=== PATIENT | male | born 1985 | race American Indian/Alaskan Native ===

== ENCOUNTER 2017-01-25 20:51 | Emergency (ER) | payer MEDICAID ==
[2017-01-25 20:55] VITALS: BP 141/89; PULSE 113; RESP 16; TEMP 98.1; O2SAT 96
--- NOTE | 2017-01-25 21:11 | EDPHY ---
HPI/HX/ROS/PE/MDM Narrative: CHIEF COMPLAINT: Rash HPI: The patient is a 31 y/o male complaining of a spreading and pruritic rash over the last 2 weeks. He says, "I caught a rash while I was incarcerated." He was released from retirement yesterday and is currently staying in a senior living house. He noticed the rash had spread from his lower back to his right leg today. He cannot identify an obvious cause apart from being in retirement. He denies any known allergies. No associated fever, dyspnea, vomiting, or other symptoms. He is normally healthy. REVIEW OF SYSTEMS: Aside from elements discussed in the HPI, a comprehensive 10-point review of systems was reviewed and is negative. PMH: Denies SOCIAL HISTORY: Released from retirement yesterday. Currently staying in senior living house. No recent drug or alcohol use. PHYSICAL EXAM: General:Patient is alert, in no acute distress. ENT:Eyes are normal to inspection. ENT inspection normal. Neck: Normal inspection. Full range of motion. Respiratory:No respiratory distress. Breath sounds normal bilaterally. Cardiovascular: Regular rate and rhythm. Strong peripheral pulses. Normal cap refill. Abdomen:The abdomen is nontender to palpation. There are no peritoneal signs. There are normal bowel sounds. Back: Normal to inspection. No tenderness to palpation. Skin: Normal color. Warm and dry. Sandpapery fine maculopapular rash on left flank, right buttock, right medial calf. Extremities: Normal appearance. Full range of motion. Neuro: Oriented x3. Normal motor function. Normal sensory function. ED Course: This is an otherwise healthy 31 y/o male who presents with a 2-week history of a spreading pruritic rash on his lower back and right leg. His rash is sandpapery and fine maculopapular in texture consistent with dermatitis. No vesicles. He is afebrile and his exam is otherwise normal. Plan for topical steroid cream and Benadryl for symptoms. He's been referred to a PCP for follow up as needed. Return precautions discussed. General Time Seen by Provider: 01/25/17 20:59 Initial Vital Signs: Initial Vital Signs Temperature (C) 36.7 C 01/25/17 20:53 Heart Rate 113 H 01/25/17 20:53 Respiratory Rate 16 01/25/17 20:53 Blood Pressure 141/89 H 01/25/17 20:53 O2 Sat (%) 96 01/25/17 20:53 O2 Delivery Mode Room Air Allergies/Adverse Reactions: No Known Allergies Allergy (Unverified 01/25/17 20:55) Departure - Departure Disposition: Home, Routine, Self-Care Clinical Impression: Dermatitis Condition: Good Instructions: Dermatitis (ED) Additional Instructions: 1. Take 25mg Benadryl daily as needed for itching over the next few days. This medication may make you sleepy. 2. Apply steroid cream as directed to affected areas. 3. Follow up with your primary care provider for unimproved symptoms over the next few days. You've been referred to [facility] locally if needed. 4. Return to the ED for severe pain, difficulty breathing, throat tightness, fever, dramatic worsening of rash, or other worsening of condition. Referrals: [facility],. [Clinic] - As per Instructions Report Scribed for: Rigoberto Friend Report Scribed by: Ana Kwong Date of Report: 01/25/17 Time of Report: 21:11 Physician Review and Approval Statement: Portions of this note were transcribed by an ED scribe. I personally performed the history, physical exam, and medical decision making; and confirm the accuracy of the information in the transcribed note.
--- NOTE | 2017-01-25 21:11 | EDPHY ---
HPI/HX/ROS/PE/MDM Narrative: CHIEF COMPLAINT: Rash HPI: The patient is a 31 y/o male complaining of a spreading and pruritic rash over the last 2 weeks. He says, "I caught a rash while I was incarcerated." He was released from assisted yesterday and is currently staying in a half-way house. He noticed the rash had spread from his lower back to his right leg today. He cannot identify an obvious cause apart from being in assisted. He denies any known allergies. No associated fever, dyspnea, vomiting, or other symptoms. He is normally healthy. REVIEW OF SYSTEMS: Aside from elements discussed in the HPI, a comprehensive 10-point review of systems was reviewed and is negative. PMH: Denies SOCIAL HISTORY: Released from assisted yesterday. Currently staying in half-way house. No recent drug or alcohol use. PHYSICAL EXAM: General:Patient is alert, in no acute distress. ENT:Eyes are normal to inspection. ENT inspection normal. Neck: Normal inspection. Full range of motion. Respiratory:No respiratory distress. Breath sounds normal bilaterally. Cardiovascular: Regular rate and rhythm. Strong peripheral pulses. Normal cap refill. Abdomen:The abdomen is nontender to palpation. There are no peritoneal signs. There are normal bowel sounds. Back: Normal to inspection. No tenderness to palpation. Skin: Normal color. Warm and dry. Sandpapery fine maculopapular rash on left flank, right buttock, right medial calf. Extremities: Normal appearance. Full range of motion. Neuro: Oriented x3. Normal motor function. Normal sensory function. ED Course: This is an otherwise healthy 31 y/o male who presents with a 2-week history of a spreading pruritic rash on his lower back and right leg. His rash is sandpapery and fine maculopapular in texture consistent with dermatitis. No vesicles. He is afebrile and his exam is otherwise normal. Plan for topical steroid cream and Benadryl for symptoms. He's been referred to a PCP for follow up as needed. Return precautions discussed. General Time Seen by Provider: 01/25/17 20:59 Initial Vital Signs: Initial Vital Signs Temperature (C) 36.7 C 01/25/17 20:53 Heart Rate 113 H 01/25/17 20:53 Respiratory Rate 16 01/25/17 20:53 Blood Pressure 141/89 H 01/25/17 20:53 O2 Sat (%) 96 01/25/17 20:53 O2 Delivery Mode Room Air Allergies/Adverse Reactions: No Known Allergies Allergy (Unverified 01/25/17 20:55) Departure - Departure Disposition: Home, Routine, Self-Care Clinical Impression: Dermatitis Condition: Good Instructions: Dermatitis (ED) Additional Instructions: 1. Take 25mg Benadryl daily as needed for itching over the next few days. This medication may make you sleepy. 2. Apply steroid cream as directed to affected areas. 3. Follow up with your primary care provider for unimproved symptoms over the next few days. You've been referred to [facility] locally if needed. 4. Return to the ED for severe pain, difficulty breathing, throat tightness, fever, dramatic worsening of rash, or other worsening of condition. Referrals: [facility],. [Clinic] - As per Instructions Report Scribed for: Rigoberto Friend Report Scribed by: Ana Kwong Date of Report: 01/25/17 Time of Report: 21:11 Physician Review and Approval Statement: Portions of this note were transcribed by an ED scribe. I personally performed the history, physical exam, and medical decision making; and confirm the accuracy of the information in the transcribed note.
--- NOTE | 2017-01-25 21:11 | EDPHY ---
HPI/HX/ROS/PE/MDM Narrative: CHIEF COMPLAINT: Rash HPI: The patient is a 31 y/o male complaining of a spreading and pruritic rash over the last 2 weeks. He says, "I caught a rash while I was incarcerated." He was released from correction yesterday and is currently staying in a shelter house. He noticed the rash had spread from his lower back to his right leg today. He cannot identify an obvious cause apart from being in correction. He denies any known allergies. No associated fever, dyspnea, vomiting, or other symptoms. He is normally healthy. REVIEW OF SYSTEMS: Aside from elements discussed in the HPI, a comprehensive 10-point review of systems was reviewed and is negative. PMH: Denies SOCIAL HISTORY: Released from correction yesterday. Currently staying in shelter house. No recent drug or alcohol use. PHYSICAL EXAM: General:Patient is alert, in no acute distress. ENT:Eyes are normal to inspection. ENT inspection normal. Neck: Normal inspection. Full range of motion. Respiratory:No respiratory distress. Breath sounds normal bilaterally. Cardiovascular: Regular rate and rhythm. Strong peripheral pulses. Normal cap refill. Abdomen:The abdomen is nontender to palpation. There are no peritoneal signs. There are normal bowel sounds. Back: Normal to inspection. No tenderness to palpation. Skin: Normal color. Warm and dry. Sandpapery fine maculopapular rash on left flank, right buttock, right medial calf. Extremities: Normal appearance. Full range of motion. Neuro: Oriented x3. Normal motor function. Normal sensory function. ED Course: This is an otherwise healthy 31 y/o male who presents with a 2-week history of a spreading pruritic rash on his lower back and right leg. His rash is sandpapery and fine maculopapular in texture consistent with dermatitis. No vesicles. He is afebrile and his exam is otherwise normal. Plan for topical steroid cream and Benadryl for symptoms. He's been referred to a PCP for follow up as needed. Return precautions discussed. General Time Seen by Provider: 01/25/17 20:59 Initial Vital Signs: Initial Vital Signs Temperature (C) 36.7 C 01/25/17 20:53 Heart Rate 113 H 01/25/17 20:53 Respiratory Rate 16 01/25/17 20:53 Blood Pressure 141/89 H 01/25/17 20:53 O2 Sat (%) 96 01/25/17 20:53 O2 Delivery Mode Room Air Allergies/Adverse Reactions: No Known Allergies Allergy (Unverified 01/25/17 20:55) Departure - Departure Disposition: Home, Routine, Self-Care Clinical Impression: Dermatitis Condition: Good Instructions: Dermatitis (ED) Additional Instructions: 1. Take 25mg Benadryl daily as needed for itching over the next few days. This medication may make you sleepy. 2. Apply steroid cream as directed to affected areas. 3. Follow up with your primary care provider for unimproved symptoms over the next few days. You've been referred to [facility] locally if needed. 4. Return to the ED for severe pain, difficulty breathing, throat tightness, fever, dramatic worsening of rash, or other worsening of condition. Referrals: [facility],. [Clinic] - As per Instructions Report Scribed for: Rigoberto Friend Report Scribed by: Ana Kwong Date of Report: 01/25/17 Time of Report: 21:11 Physician Review and Approval Statement: Portions of this note were transcribed by an ED scribe. I personally performed the history, physical exam, and medical decision making; and confirm the accuracy of the information in the transcribed note.
[2017-01-25] MEDS ORDERED: HYDROCORTISONE 1% CREAM TP ONE (21:21)
[2017-01-26] MEDS ORDERED: HYDROCORTISONE 1% CREAM TP ONE (21:23)
== END 2017-01-25 21:30 | disposition home or self-care (01) ==
DX: L30.9 Dermatitis, unspecified (principal)

== ENCOUNTER 2017-03-20 09:23 | Emergency (ER) | payer MEDICAID ==
[2017-03-20 09:36] VITALS: BP 130/94; PULSE 96; RESP 18; TEMP 97.9; O2SAT 96
[2017-03-20] MEDS ORDERED: traMADol 50 MG TAB PO ONE (09:52)
--- NOTE | 2017-03-20 09:53 | EDPHY ---
H & P Stated Complaint: Dental pain post extraction 03/16;out of hydrocodone Source: Patient Exam Limitations: No limitations - Personal History Current Tetanus Diphtheria and Acellular Pertussis (TDAP): Yes - Medical/Surgical History Hx Asthma: No Hx Chronic Respiratory Disease: No Hx Diabetes: No Hx Cardiac Disease: No Hx Renal Disease: No Hx Cirrhosis: No Hx Alcoholism: No Hx HIV/AIDS: No Hx Splenectomy or Spleen Trauma: No Other PMH: ADHD bipolar - Social History Smoking Status: Current every day smoker Time Seen by Provider: 03/20/17 09:53 HPI/ROS: HPI: This is a 31-year-old male presents with Chief Complaint: Right upper back tooth pain Location: Right upper molar Quality: Pain Duration: Since this morning Signs and Symptoms: No radiation, no difficulty swallowing, + sensitivity to hot and cold foods, no jaw swelling, no difficulty talking Timing: Sudden onset Severity: 11/04 Context: Patient presents via EMS for sudden onset of severe, constant right upper molar tooth pain. He reports that he had at tooth extraction approximately 5 days ago. He has been taking penicillin and reports compliance. He was given [place] by his oral surgeon but he ran out yesterday evening. He was taking 2 pills every 4 hr. He has been an able to eat or drink this morning due to the pain. Nothing makes better or worse. He did not try taking Tylenol or ibuprofen. Denies fever/radiation/trismus/difficulty swallowing/difficulty talking. Modifying Factors: None Comment: ROS: see HPI Constitutional: No fever, no chills, no weight loss Eyes: No blurred vision Respiratory: No shortness of breath, no cough Cardiovascular: No chest pain Gastrointestinal: No nausea, no vomiting, no diarrhea Genitourinary: No dysuria Extremities: No myalgias Neurologic: No weakness, no numbness Skin: No rashes Hematologic: No bruising, no bleeding MEDICAL/SURGICAL/SOCIAL HISTORY: Medical history: Attention deficit hyperactivity disorder, bipolar Surgical history: Oral surgery Social history: Employed. CONSTITUTIONAL: Adult male holding right side of jaw, ice pack applied, awake and alert, moderate distress HEENT: Atraumatic and normocephalic, PERRL, EOMI. Tympanic membranes clear. Oropharynx clear, tooth #1 shows no gingival erythema/swelling/exudate. No malocclusion. no exudate and moist pink mucosa. Airway patent. No lymphadenopathy. No meningismus. Cardiovascular: Normal S1/S2, regular rate, regular rhythm, without murmur rub or gallop. PULMONARY/CHEST: Symmetrical and nontender. Clear to auscultation bilaterally. Good air movement. No accessory muscle usage. ABDOMEN: Soft, nondistended, nontender, no rebound, no guarding, no peritoneal signs, no masses or organomegaly. No CVAT. EXTREMITIES: 2/2 pulses, strength 5/5, no deformities, no clubbing, no cyanosis or edema. NEUROLOGICAL: no focal neuro deficits. GCS 15. SKIN: Warm and dry, no erythema. no rash. Good capillary refill. (Jocelyn Kelley) Constitutional: Initial Vital Signs Temperature (C) 36.6 C 03/20/17 09:34 Heart Rate 96 03/20/17 09:34 Respiratory Rate 18 03/20/17 09:34 Blood Pressure 130/94 H 03/20/17 09:34 O2 Sat (%) 96 03/20/17 09:34 O2 Delivery Mode Room Air Allergies/Adverse Reactions: No Known Allergies Allergy (Verified 03/20/17 09:33) Home Medications: Medication Instructions Recorded Penicillin V Potassium [Penicillin 500 mg PO 03/20/17 VK] traMADol [Ultram 50 mg (*)] 50 mg PO Q6 PRN #10 tab 03/20/17 Medical Decision Making Procedures: Procedure: Dental block The patient's #1 molar located on the right upper back tooth. I obtained verbal consent from the patient to perform dental block who was informed about the possibility of bleeding and pain. 4 mL of the bupivacaine was injected into the right upper buccal submucosal space with almost immediate relief of pain. Patient tolerated procedure well. No complications were identified. The procedure was performed by myself. (Jocelyn Kelley) ED Course/Re-evaluation: Probably given dental block and tramadol No signs of dry socket/airway compromise/periapical abscess/facial cellulitis Almost immediate relief with dental block. Advised to follow up with dentist as ER will not refill pain medications for postoperative procedure. This patient was seen under the supervision of my secondary supervising physician. I evaluated care for this patient independently. Discussed this patient with Dr. Edmonds who did not see the patient. (Jocelyn Kelley) The patient was evaluated and managed by the physician engineering inspection assistant. I have reviewed this chart and I agree with the findings and plan of care as documented , as indicated by my signature. I am the secondary supervising physician. ( Gillian Edmonds) Differential Diagnosis: Differential diagnosis includes but is not limited to opiate withdrawal, dry socket, nerve pain, odontalgia. (Jocelyn Kelley) - Data Points Medications Given: Discontinued Medications Tramadol HCl (Ultram) 100 mg PO EDNOW ONE Stop: 03/20/17 09:53 Last Admin: 03/20/17 09:56 Dose: 100 mg Departure - Departure Disposition: Home, Routine, Self-Care Clinical Impression: Odontalgia, Has run out of medications Condition: Good Instructions: Tramadol (By mouth), Toothache (ED) Additional Instructions: Please call your dentist on Tuesday for refill of pain medications and follow up. Take Tylenol 650 mg every 4 hr or ibuprofen 600-800 mg with food every 8 hr for pain. If pain not relieved with above medications, you may use Ultram every 6 hr as needed for severe/breakthrough pain. Referrals: Unknown,Unknown [Unknown] - 1 day, if not improved Prescriptions: traMADol [Ultram 50 mg (*)] 50 mg PO Q6 PRN #10 tab PRN Reason: Pain, Severe
== END 2017-03-20 10:05 | disposition home or self-care (01) ==
PROC: 3E0X3BZ Introduction of Anesthetic Agent into Cranial Nerves, Percutaneous Approach (ICD-10-PCS; principal; 2017-03-20)
DX: K08.89 Other specified disorders of teeth and supporting structures (principal); F17.200 Nicotine dependence, unspecified, uncomplicated; Z76.0 Encounter for issue of repeat prescription

== ENCOUNTER 2017-06-09 15:30 | Emergency (ER) | payer MEDICAID ==
--- NOTE | 2017-06-09 15:45 | EDPHY ---
H & P Stated Complaint: right arm laceration r/t fall Time Seen by Provider: 06/09/17 15:44 - Personal History Current Tetanus Diphtheria and Acellular Pertussis (TDAP): Yes Tetanus Vaccine Date: 2015 - Medical/Surgical History Hx Asthma: No Hx Chronic Respiratory Disease: No Hx Diabetes: No Hx Cardiac Disease: No Hx Renal Disease: No Hx Cirrhosis: No Hx Alcoholism: No Hx HIV/AIDS: No Hx Splenectomy or Spleen Trauma: No Other PMH: ADHD bipolar - Social History Smoking Status: Current every day smoker Constitutional: Initial Vital Signs Temperature (C) 36.4 C 06/09/17 15:36 Heart Rate 83 06/09/17 15:36 Respiratory Rate 18 06/09/17 15:36 Blood Pressure 140/73 H 06/09/17 15:36 O2 Sat (%) 94 06/09/17 15:36 O2 Delivery Mode Room Air Allergies/Adverse Reactions: No Known Allergies Allergy (Verified 06/09/17 15:34) Home Medications: Medication Instructions Recorded Penicillin V Potassium [Penicillin 500 mg PO 03/20/17 VK] traMADol [Ultram 50 mg (*)] 50 mg PO Q6 PRN #10 tab 03/20/17 Hydrocodone/APAP 5/325 [[place] 1 - 2 each PO Q4-6PRN PRN #20 tab 06/09/17 5/325] Neurontin 06/09/17 Zyprexa 06/09/17 Medical Decision Making ED Course/Re-evaluation: CHIEF COMPLAINT: Right arm burn HISTORY OF PRESENT ILLNESS: The patient is a 32 y/o male presenting with a burn to the right lower arm. He was walking in his kitchen when he slipped on dog food causing his right arm to hit the stove. He has associated pain at the site of the burn. He denies any other associated symptoms. REVIEW OF SYSTEMS: A 10 point review of systems was performed and is negative with the exception of the elements mentioned in the history of present illness. PHYSICAL EXAM: HR, BP, O2 Sat, RR. Temp noted General Appearance: Alert, well hydrated, appropriate, and non-toxic appearing. Head: Atraumatic without scalp tenderness or obvious injury Eyes: Pupils equal, round, reactive to light and accommodation, EOMI, no trauma , no injection. Respiratory: Not in respiratory distress. Cardiovascular: Regular rate and rhythm, no murmurs, rubs, or gallops. Musculoskeletal: Normal active ROM of all extremities, atraumatic. Neurological: Alert, appropriate, and interactive. Skin: 8 cm superficial 2nd degree linear burn to the dorsal aspect of the right arm. Not circumferential. Blisters have popped. Past medical history: Denies Past surgical history: Denies Family history: Non-contributory Social history: Lives in [place], , medicaid patient DIFFERENTIAL DIAGNOSIS: The differential diagnosis for this patient's condition included but was not limited to 1st degree burn, 2nd degree burn, 3rd degree burn, and laceration. MEDICAL DECISION MAKING: The patient presents with a burn to the right forearm. On exam the burn is non-circumferential, on the dorsal aspect, and 8 cm long. It appears to be 2nd degree with the blisters already popped. The patient denies any other complaints. Dressing and bacitracin will be applied in ED and he will be sent home with instructions to change dressings daily. I have also prescribed him hydrocodone for the pain. He agrees to this course of action. - Data Points Medications Given: Discontinued Medications Ibuprofen (Motrin) 600 mg PO EDNOW ONE Stop: 06/09/17 15:53 Last Admin: 06/09/17 15:54 Dose: 600 mg Departure - Departure Disposition: Home, Routine, Self-Care Clinical Impression: Burn of right arm Qualifiers: Encounter type: initial encounter Upper extremity location: forearm Burn degree : partial thickness (2nd degree) Qualified Code(s): T22.211A - Burn of second degree of right forearm, initial encounter Condition: Good Instructions: Second Degree Burn (ED) Additional Instructions: 1. Change your dressing daily using bacitracin. 2. Follow up with your primary care provider for continued symptoms. 3. Return to the emergency department for any worsening of condition. Referrals: Jessica Jacob MD [Medical Doctor] - As per Instructions Prescriptions: Hydrocodone/APAP 5/325 [[place] 5/325] 1 - 2 each PO Q4-6PRN PRN #20 tab PRN Reason: Pain, Moderate Report Scribed for: Robert Johnson Report Scribed by: Julia Bermeo Date of Report: 06/09/17 Time of Report: 16:07
[2017-06-09] MEDS ORDERED: IBUPROFEN 600 MG TAB PO ONE (15:52)
[2017-06-09 16:24] VITALS: BP 121/79; PULSE 73; RESP 16; TEMP 98.6; O2SAT 95
== END 2017-06-09 16:24 | disposition home or self-care (01) ==
PROC: 2W2CX4Z Dressing of Right Lower Arm using Bandage (ICD-10-PCS; principal; 2017-06-09)
DX: T22.211A Burn of second degree of right forearm, initial encounter (principal); F17.200 Nicotine dependence, unspecified, uncomplicated; T31.0 Burns involving less than 10% of body surface; X15.0XXA Contact with hot stove (kitchen), initial encounter; Y92.000 Kitchen of unspecified non-institutional (private) residence as the place of occurrence of the external cause; Y99.8 Other external cause status; Y93.01 Activity, walking, marching and hiking

== ENCOUNTER 2018-01-12 10:21 | Inpatient (IN) | payer MEDICAID, OTHER ==
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
[2018-01-12 11:31] LABS: PLATELET COUNT 329 10^3/uL (150-400)
[2018-01-12] MEDS ORDERED: LORazepam 1 MG TAB PO ONE (14:13)
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
--- NOTE | 2018-01-12 21:13 | ASMTTCLDSP ---
TLC Discharge Disposition Disposition: Answers: Admit Discharge Concerns/Recommendations: Notes: In consultation with [facility] ED physician, Denise Corral MD and on-call psychiatrist, Pina Arteaga MD, both concurred that pt appears to meet 27-65 criteria requiring psychiatric hospitalization as pt appears to be at risk of harm to self due to a mental illness condition. Was patient given the Answers: Yes Inpatient Behavioral Health Prohibited Belongings List while in the ED? Date Signed: 01/12/2018 08:45 PM Electronically Signed By:Sigrid Mason
--- NOTE | 2018-01-12 21:13 | ASMTLCPROG ---
Notes Note: Notes: Correction on TLC Eval: Accepting psychiatrist was Dr. Pina Arteaga, Not Dr. Marquis Moreno. Date Signed: 01/12/2018 08:46 PM Electronically Signed By:Sgirid Mason
[2018-01-12] MEDS ORDERED: MAG HYDROX/AL HYDROX/SIMETH 30 ML UDCUP PO PRN (22:31)
[2018-01-12] MEDS ORDERED: ACETAMINOPHEN 325 MG TAB PO PRN (22:31)
[2018-01-12] MEDS ORDERED: MAGNESIUM HYDROXIDE 30 ML UDCUP PO PRN (22:31)
[2018-01-12] MEDS ORDERED: NICOTINE POLACRILEX 2 MG GUM B PRN (22:31)
--- NOTE | 2018-01-12 23:07 | CPEKG ---
Test Reason : OPEN Blood Pressure : / mmHG Vent. Rate : 063 BPM Atrial Rate : 063 BPM P-R Int : 137 ms QRS Dur : 100 ms QT Int : 422 ms P-R-T Axes : 054 083 061 degrees QTc Int : 433 ms Sinus rhythm Confirmed by Denise Corral ([id number]) on 01/12/2018 11:06:39 PM Referred By: Confirmed By:Denise Corral
[2018-01-12] MEDS: LORazepam 0.5 MG TAB PO PRN (23:43)
[2018-01-13] MEDS ORDERED: OLANZapine 5 MG TAB PO PRN
[2018-01-13] MEDS ORDERED: PNEUMOCOCCAL 0.5ML VACCINE VIAL IM ONE (11:26)
--- NOTE | 2018-01-13 11:44 | ASMTBHMTP ---
Master Treatment Plan Master Treatment Plan Answers: Depressed Mood with for: Suicidal Ideation Date: 01/13/2018 Diagnosis on Admission: Post Traumatic Stress Disorder 309.81 (F43.10) Expected length of stay: 3-5 Reason for admission: Notes: The patient stated, "I've been having crazy behavior, I'm thinking about suicide a lot, thinking about running away, I don't have a sense of being safe, and I don't know where I belong." Patient's stated presenting problems: Notes: The patient reported that he often makes plans and creates a schedule but if things don't go that way he feels overwhelmed stating, "I'm in shock a little bit." He reported that he "thinks about it too much and doesn't want to do it anymore." The patient stated that he feels there is an "ugly sense in me something is wrong, something ain't right." Patient's goals for treatment: Notes: The patient stated, "Get rid of my internal conflicts that I have about every little thing." Patient's strengths: Notes: The patient stated, "bike riding, engineering, and helping." Identify supports outside of hospital: Notes: The patient stated, "My ." His is Denis Navas [[phone]]. Discharge criteria: Notes: Suicidal ideation will resolve and patient will have a plan to safely manage recurrent suicidal ideation. Initial disposition plan/considerations: Notes: The patient reported that he plans to return home and continue services with [facility] outpatient. Master Treatment Plan Required Signatures Psychiatrist signature: Answers: YAW Taylor: RN on-shift signature: Answers: RN: Patient signature: Answers: Patient: Date Signed: 01/13/2018 11:43 AM Electronically Signed By:Ginny Lyn
[2018-01-13] MEDS ORDERED: guaiFENesin 200 MG TAB PO PRN (14:33)
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
[2018-01-13] MEDS: GABAPENTIN 400 MG CAP PO SCH ×2 (15:37→21:20)
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
[2018-01-13] MEDS: OLANZapine DISINTEGR 10 MG TAB PO SCH (21:20)
[2018-01-14] MEDS: GABAPENTIN 400 MG CAP PO SCH ×3 (09:18→21:24)
[2018-01-14] MEDS: LORazepam 0.5 MG TAB PO PRN (14:26)
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
[2018-01-14] MEDS: OLANZapine DISINTEGR 10 MG TAB PO SCH (21:25)
[2018-01-15] MEDS: GABAPENTIN 400 MG CAP PO SCH ×3 (08:15→20:37)
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
[2018-01-15] MEDS: OLANZapine DISINTEGR 10 MG TAB PO SCH (20:36)
[2018-01-16 06:48] VITALS: BP 123/60
[2018-01-16] MEDS: GABAPENTIN 400 MG CAP PO SCH (08:32)
--- NOTE | 2018-01-16 09:39 | BDS ---
REASON FOR ADMISSION: From the ED note dated 01/12/2018, the patient has a history of schizoaffective disorder, bipolar type. Has been off his medications for 6 months. On the waiting list to see mental health provider. The patient presented to the ER voluntarily with his complaining of increasing suicidal ideation with plan to hang himself. The patient reported increased auditory hallucinations. The patient was admitted involuntarily on an M1 hold due to being a danger to himself. The patient was admitted for safety crisis stabilization and medication management. ADMITTING DIAGNOSES: Schizoaffective disorder, bipolar type; posttraumatic stress disorder, alcohol use disorder, severe; cannabis use disorder, severe. ADMISSION PHYSICAL EXAM: The patient was seen for an Internal Medicine consultation for medical clearance for inpatient psychiatric hospitalization on 01/13/2018. The patient was seen by Dr. Tillman. Dr. Tillman reported he saw no medical contraindications to the patient's continued stay in the inpatient behavioral health unit or to any psychiatric medications or procedures. For further details, please refer to Internal Medicine consultation note dated 01/13. ADMISSION LABS: CBC was entirely within normal limits with no leukocytosis. Serum chemistry revealed normal renal function and electrolytes and liver function. The patient had lipid panel with cholesterol of 149, LDL of 78, and HDL of 43. Hemoglobin A1c was normal at 5.5. Toxicology screen in the serum was negative for salicylates, acetaminophen or ethyl alcohol and toxicology screen in the urine was negative for any substances of abuse. MAJOR PROCEDURES OR TESTS: None. HOSPITAL COURSE: The most prominent symptoms and behaviors while the patient was here were the patient's complaints of auditory hallucinations. The patient reported severe depression, hopelessness, and suicidal ideation. Treatment modalities utilized were milieu and group therapy. Zyprexa, Zydis 10 mg p.o. at bedtime was started to target psychosis symptoms, was tolerated with no report of side effects and with good response. Gabapentin 400 mg TID was started to target anxiety symptoms, was tolerated with no report of side effects and with good response. The patient has improved considerably with no signs of psychiatric symptoms and no psychiatric symptoms expressed at time of discharge. The patient reports he has improved since admission. States to be in stable condition. Feels safe to discharge and he contracts for safety. Patient's response to treatment was good. There were no adverse or unexpected results of treatment. The patient was safe throughout his stay, active in treatment, engaged in groups, and was appropriate with staff and other patients. The patient met with the treatment team prior to discharge to assess readiness to discharge and reviewed discharge plan. The treatment team consensus is the patient is in stable condition, has a safe discharge plan and is ready to discharge today. Patient requests medication for alcohol abuse treatment during family meeting. After reviewing options, risks, and benefits patient agrees to Antabuse 250 mg po QD. CONDITION AT DISCHARGE: Patient is in stable condition and is no longer a danger to self or others, and is not gravely disabled due to mental illness. Patient is no longer in need of inpatient level of care, and can be safely and effectively treated within the community. The patients level of risk at time of discharge is low. MSE: The patient is casually dressed and with good hygiene , and looks stated age. Patient is sitting, posture is upright, and position is relaxed. Patient appears awake, alert, and responds appropriately and reasonably during interview. Patient is engaged, relates well to interviewer, and emotional facial expression is appropriate to situation and changes appropriately with topic. Patient is cooperative, makes comfortable eye contact , and movements are voluntary, deliberate, coordinated, and smooth and even with no inappropriate movements. Patient makes laryngeal sounds effortlessly and shares conversation appropriately; pace of conversation is appropriate, and stream of talking is fluent; articulation is clear and understandable; word choice is effortless and appropriate for education level; completes sentences, occasionally pausing to think; rate and volume are appropriate for interview and setting. Patient reports mood as euthymic. Patients affect is stable with full variable range, congruent with mood, and appropriate to speech and circumstances. Patient has linear and logical thinking, with no loose associations, tangential thought, thought blocking, concrete thinking, or any other signs of formal thought disorder. Patient denies suicidal and homicidal ideation, and denies hallucinations and delusions. Patient appears to be a reliable historian with sound judgement and good insight into current condition. Patient has no apparent dysfunction in recent or remote memory noted , and no evidence of gross cognitive dysfunction noted at any point during the interview. DISCHARGE DIAGNOSES: Schizoaffective disorder, bipolar type; posttraumatic stress disorder, alcohol use disorder, severe; cannabis use disorder, severe. CURRENT MEDICATIONS: After reviewing options, risks and benefits the patient agrees to continue Zyprexa 10 mg p.o. at bedtime, and gabapentin 400 mg p.o. three times daily. Patient requests Antabuse 250 mg po QD for alcohol abuse treatment. The patient requests prescriptions for these medications at time of discharge. Prescriptions for 30 days are provided. The prescriptions are reviewed with the patient at time of discharge to ensure accuracy and patient understanding. DISPOSITION: The patient left hospital independently and voluntarily with his and plans to return home with his . The patient met with this [employer] and his at the patient's request for a family meeting prior to discharge. FOLLOWUP: coordinator of genetic services reports the appropriate outpatient follow-up services have been established and outpatient appointments have been scheduled. The patient received written instructions with times and dates of outpatient follow-up appointments. The following follow-up recommendations were provided to the patient at discharge: Continue psychotropic medications as prescribed and attend appointments as scheduled. Report any side effects to a psychiatric outpatient provider, a primary care provider, or other health healthcare technician. Address any questions or problems concerning the psychotropic medications with a psychiatric outpatient provider, a primary care provider, or other health healthcare technician. Contact [facility] or [facility], or go to the nearest emergency room, if you are ever a danger to yourself/others, or unable to care for yourself. As soon as possible, establish a routine medication management treatment with a psychiatric provider, establish routine therapy appointments, and follow-up with a primary care provider. SUBSTANCE ABUSE BRIEF INTERVENTION: Brief intervention regarding the risks of alcohol and cannabis abuse is provided to patient with goal to reduce the risk of harm that could result from the continued use of alcohol and cannabis, with the general aim to investigate the problem, raise awareness of problem, develop a solution with the patient, recommend a specific change or activity, and motivate the patient toward change. Assess substance abuse behavior and give supportive advice about harm reduction, recommend a reduction in hazardous/at- risk consumption patterns, and facilitate referrals for additional specialized treatment with customer care agent. Intermediate goal is for the patient to quit use of alcohol and cut down on cannabis use. Treatment includes Antabuse and outpatient substance abuse treatment at [facility]. Intervention focus on intermediate goals to allow for more immediate success in the treatment process to keep the patient motivated. Review following with patient: Cannabis use risks: Short-term use: impaired short-term memory, impaired motor coordination, altered judgement, in high doses paranoia and psychosis. Long-term use addiction, diminished life satisfaction and achievement, symptoms of chronic bronchitis, and increased risk of chronic psychosis disorders if predisposition to such disorders. In withdrawal anger, aggression irritability, anxiety and nervousness, decreased appetite or weight loss, restlessness, and sleep difficulties with strange dreams. Alcohol/Binge Drinking risks: short-term: injuries, violence, alcohol poisoning, risky sexual behaviors. Long-term: high blood pressure, stroke, liver disease, digestive problems, cancer, learning and memory problems, depression and anxiety, social problems, and alcohol dependence. OUTPATIENT SUBSTANCE ABUSE TREATMENT: Patient referred to outpatient provider and treatment for continued treatment related to substance abuse. LEGAL COURSE: The patient was admitted on an M1 for involuntary inpatient psychiatric hospitalization. The patient discharged today independently and voluntarily. ATTITUDE AT TIME OF DISCHARGE: The patients attitude was positive at time of discharge, and patient reports looking forward to discharging today. The patient reports he feels safe to discharge, is no longer a danger to himself or others, is in stable condition, and contracts for safety. Patient states he will continue medications as prescribed, and establish medication management treatment with an outpatient provider after discharge. Patient reports he understands the information that has been provided to him, and he understands, accepts, and agrees to psychotropic medications. Patient describes internal protective factors as the coping skills he has learned while hospitalized here, and he plans to continue to practice these coping skills after discharge. Patient reports external protective factors as . FAMILY MEETING: This [employer] and customer care agent met with patient and patients at time of discharge at patients request to review discharge plan and assess readiness to discharge. Patients reports patient is safe to discharge and has a safe discharge plan. Patients reports patients main issue is alcohol abuse, and patient agrees. Patient reports his alcohol use causes exacerbation of psychosis symptoms and increased anxiety, and states his alcohol use is ruining his relationship with his . Patient requests medication for alcohol abuse. After reviewing options, risks, and benefits with patient and patients patient requests prescription of Antabuse 250 mg po QD. Patient states he is ready to completely abstain from drinking alcohol and plans to follow-up today with [facility] for setting up services. Patient reports he understands the risks associated with taking Antabuse including drinking alcohol and states he will not drink alcohol, and states he needs this type of treatment in order to abstinence from alcohol. His agrees with this plan. LABS AND RADIOLOGY STUDIES: There were no pending labs or studies at time of discharge. ADVANCED DIRECTIVES: There were no advance directives on file, and the patient was full code during hospitalization. The following psychotropic medication treatment informed consent and recommendations were provided to the patient at time of discharge. Patient reports he understands, accepts, and agrees to the information that has been provided. PSYCHOTROPIC MEDICATION TREATMENT INFORMED CONSENT and RECOMMENDATIONS: Review nature of condition, diagnosis, and prognosis. Review nature and purpose of psychotropic medication treatment. Review type of psychotropic medications being prescribed. Review risk and benefits of psychotropic medication treatment. Review probable length of time will need to take medications. Review risk and benefits of not undergoing psychotropic medication treatment. Review alternative treatments to psychotropic medications. Review psychotropic medications contraindications, side effects, and importance of reporting any side effects to a psychiatric provider, primary care provider, or other health healthcare technician. Review importance of asking a psychiatric provider or primary care provider any questions or problems concerning the psychotropic medications. Review safety plan and the importance to contact [facility] or [facility] , or go to the nearest emergency room, if ever a danger to yourself/others, or unable to care for yourself. Recommend upon discharge to establish routine medication management treatment with a psychiatric provider, establish routine therapy appointments, and follow-up with a primary care provider. Verify patient understands, accepts, and agrees to the information that has been provided. SUICIDE ASSESSMENT FIVE-STEP EVALUATION AND TRIAGE (1) RISK FACTORS: (a) Suicidal behavior: reports vague history of multiple attempts (b) Current/past psychiatric disorders: Schizoaffective disorder, bipolar type; alcohol use disorder, severe; cannabis use disorder, severe. (c) Tafoya symptoms: none expressed or exhibited at time of discharge (d) Family history: mom--attempted; dad--attempted (e) Precipitants/Stressors/Interpersonal: none (f) Change in treatment: discharge from psychiatric hospital (g) Access to firearms: none (2) PROTECTIVE FACTORS: (a) Internal: coping skills learned while hospitalized (b) External: family and future (3) SUICIDAL INQUIRY: (a) Ideation: none (b) Plan: none (c) Behaviors: none; patient was safe throughout stay with no suicidal or parasuicidal behaviors (d) Intent: none (4) RISK LEVEL: Low: modifiable risk factors, strong protective factors; no suicidal or self-injurious ideation. Intervention: treatment plan to reduce symptoms including medications and therapy, provided emergency/crisis numbers, established follow-up plan, and plan for alcohol abuse treatment including medications and therapy. /[id number]/MODL MTDD
== END 2018-01-16 11:43 | disposition home or self-care (01) | DRG 885 ==
LOC: BBEH 21:15 → FOB 21:15
PROVIDERS: ADMIT Psychiatry & Neurology Behavioral Neurology & Neuropsychiatry; ATTEND Registered Nurse
DX: F25.0 Schizoaffective disorder, bipolar type (principal); R45.851 Suicidal ideations; F43.10 Post-traumatic stress disorder, unspecified; F10.10 Alcohol abuse, uncomplicated; F12.20 Cannabis dependence, uncomplicated; S61.511A Laceration without foreign body of right wrist, initial encounter; X78.9XXA Intentional self-harm by unspecified sharp object, initial encounter; R05 Cough; Z23 Encounter for immunization; Z91.5 Personal history of self-harm; Z81.8 Family history of other mental and behavioral disorders; Z62.810 Personal history of physical and sexual abuse in childhood
CPT/HCPCS: 80305; G0008; G0009; G0480

== ENCOUNTER 2018-03-18 15:06 | Emergency (ER) | payer MEDICAID ==
--- NOTE | 2018-03-18 15:22 | EDPHY ---
H & P Time Seen by Provider: 03/18/18 15:20 HPI/ROS: HPI CHIEF COMPLAINT: Medical clearance for [facility]. HISTORY OF PRESENT ILLNESS: Patient 32-year-old male, history of schizoaffective disorder, bipolar subtype, PTSD, history of marijuana use and alcohol use, presents emergency room by EMS for attempted hanging. The patient was contacted by police and EMS at his girlfriend's house. Where he was causing a disturbance, became upset. He placed an electrical wire around his neck and He states he hung briefly by this until the chair broke, brief hanging <30 seconds. He then attempted to hang again and was briefly hanging for less than a minute. He does have ligature janina on his anterior neck. Small, thing janina, no neck swelling. He denies any trouble swallowing. Denies trouble breathing. No headache. Complains of some mild anterior neck pain. No posterior neck pain. The patient here is suicidal, and medical clearance for [facility]. Past Medical History: Bipolar disorder, PTSD, marijuana use, alcohol use. Past Surgical History: Denies recent Social History: Denies current use. Family History: Noncontributory ROS REVIEW OF SYSTEMS: 10 Systems were reviewed and negative with the exception of the elements mentioned in the history of present illness. Exam Constitutional triage nursing summary reviewed, vital signs reviewed, awake/ alert. Eyes normal conjunctivae and sclera, EOMI, PERRLA. HENT neck: In a cervical collar placed by EMS, ligature janina very small thin ligature janina across the anterior neck. No stridor. No tenderness no crepitus , no bruit appreciated. No midline cervical spine pain posteriorly. normal inspection, atraumatic, moist mucus membranes, no epistaxis, neck supple/ no meningismus, no raccoon eyes. Respiratory clear to auscultation bilaterally, normal breath sounds, no respiratory distress, no wheezing. Cardiovascular rate normal, regular rhythm, no murmur, no edema, distal pulses normal. Gastrointestinal soft, non-tender, no rebound, no guarding, normal bowel sounds, no distension, no pulsatile mass. Genitourinary no CVA tenderness. Musculoskeletal no midline vertebral tenderness, full range of motion, no calf swelling, no tenderness of extremities, no meningismus, good pulses, neurovascularly intact. Skin pink, warm, & dry, no rash, skin atraumatic. Neurologic awake, alert and oriented x 3, AAOx3, moves all 4 extremities equally, motor intact, sensory intact, CN II-XII intact, normal cerebellar, normal vision, normal speech. Psychiatric normal mood/affect. Heme/Lymph/Immune no lymphadenopathy. Differential Diagnosis: Plan for this patient, will obtain blood work for CT angiogram neck, CT cervical spine without contrast for trauma. CT head without contrast for trauma Medical Decision Making: Plan for patient for medical clearance for [facility], is Ct neck, Ct angio neck, ct head. If these are normal, he can be cleared to go to [facility], where he will be under suicide watch as well. Re-evaluation: CT scan head without contrast negative for acute traumatic injury called to me by Dr. Sevilla CT angiogram of the neck shows no evidence of acute dissection or injury called to me by Dr. Sevilla CT cervical spine without contrast negative for acute traumatic injury called to me by Dr. Sevilla. Patient is here in police custody, here for medical clearance for [facility]. 1804 re-evaluation the patient has no neck pain or neck swelling. He is able to talk fine, swallow fluids fine no stridor on exam no neck swelling. CT scans reviewed. Normal Patient he under-arrest, and brought here for clearance for [facility]. Plan for discharge to [facility] with please. He is medically cleared for [facility]. Needs to be placed on suicide watch in [facility]. Source: Patient, Police, EMS - Personal History Tetanus Vaccine Date: 2015 - Medical/Surgical History Hx Asthma: No Hx Chronic Respiratory Disease: No Hx Diabetes: No Hx Cardiac Disease: No Hx Renal Disease: No Hx Cirrhosis: No Hx Alcoholism: No Hx HIV/AIDS: No Hx Splenectomy or Spleen Trauma: No Other PMH: ADHD bipolar, schizophrenia, PTSD - Social History Smoking Status: Current every day smoker Constitutional: Initial Vital Signs Temperature (C) 36.8 C 03/18/18 15:30 Heart Rate 61 03/18/18 15:30 Respiratory Rate 16 03/18/18 15:30 Blood Pressure 121/74 H 03/18/18 15:30 O2 Sat (%) 99 03/18/18 15:30 O2 Delivery Mode Room Air Allergies/Adverse Reactions: No Known Allergies Allergy (Verified 01/12/18 10:30) Home Medications: Medication Instructions Recorded Disulfiram [Antabuse 250 MG (*)] 250 mg PO DAILY 30 Days #30 tab 10/22/18 Gabapentin [Neurontin 400 MG (*)] 400 mg PO TID 30 Days #90 cap 01/16/18 OLANZapine [Zyprexa] 10 mg PO HS 30 Days #30 tablet 01/16/18 Medical Decision Making - Diagnostics Imaging Results: Imaging Impressions Cervical Spine CT 03/18/18 15:18 Impression: 1. No significant intracranial abnormality seen. 2. Mild facet hypertrophy lower cervical spine. Otherwise, normal CT cervical spine. If symptoms worsen, additional imaging may be necessary. Findings discussed with Cheko Olivares MD at 17:55 hour, 03/18/2018. Head CT 03/18/18 15:18 Impression: 1. No significant intracranial abnormality seen. 2. Mild facet hypertrophy lower cervical spine. Otherwise, normal CT cervical spine. If symptoms worsen, additional imaging may be necessary. Findings discussed with Cheko Olivares MD at 17:55 hour, 03/18/2018. Neck CTA 03/18/18 15:18 Impression: Normal CT angiogram of the neck to the base of the skull. Note: All calculations were calculated using NASCET criteria. Findings discussed with Cheko Olivares MD at 17:56 hour, 03/18/2018. - Data Points Laboratory Results: Laboratory Results 03/18/18 16:00 03/18/18 16:00 03/18/18 03/18/18 16:00 16:00 WBC 7.48 10^3/uL 10^3/uL (3.80-9.50) RBC 4.69 10^6/uL 10^6/uL (4.40-6.38) Hgb 13.9 g/dL g/dL (13.7-17.5) Hct 41.5 % % (40.0-51.0) MCV 88.5 fL fL (81.5-99.8) MCH 29.6 pg pg (27.9-34.1) MCHC 33.5 g/dL g/dL (32.4-36.7) RDW 13.1 % % (11.5-15.2) Plt Count 285 10^3/uL 10^3/uL (150-400) MPV 10.1 fL fL (8.7-11.7) Neut % (Auto) 73.0 % % (39.3-74.2) Lymph % (Auto) 17.4 % % (15.0-45.0) Bartholomew % (Auto) 7.9 % % (4.5-13.0) Eos % (Auto) 0.7 % % (0.6-7.6) Baso % (Auto) 0.7 % % (0.3-1.7) Nucleat RBC Rel Count 0.0 % % (0.0-0.2) Absolute Neuts (auto) 5.47 10^3/uL 10^3/uL (1.70-6.50) Absolute Lymphs (auto) 1.30 10^3/uL 10^3/uL (1.00-3.00) Absolute Monos (auto) 0.59 10^3/uL 10^3/uL (0.30-0.80) Absolute Eos (auto) 0.05 10^3/uL 10^3/uL (0.03-0.40) Absolute Basos (auto) 0.05 10^3/uL 10^3/uL (0.02-0.10) Absolute Nucleated RBC 0.00 10^3/uL 10^3/uL (0-0.01) Immature Gran % 0.3 % % (0.0-1.1) Immature Gran # 0.02 10^3/uL 10^3/uL (0.00-0.10) Sodium 138 mEq/L mEq/L (135-145) Potassium 3.8 mEq/L mEq/L (3.5-5.2) Chloride 111 mEq/L H mEq/L (97-110) Carbon Dioxide 21 mEq/l L mEq/l (22-31) Anion Gap 6 mEq/L mEq/L (6-14) BUN 11 mg/dL mg/dL (7-23) Creatinine 0.5 mg/dL L mg/dL (0.7-1.3) Estimated GFR > 60 Glucose 73 mg/dL mg/dL (70-100) Calcium 7.8 mg/dL L mg/dL (8.5-10.4) Departure - Departure Disposition: Home, Routine, Self-Care Clinical Impression: Bipolar 1 disorder Condition: Good Instructions: Bipolar Disorder (ED) Additional Instructions: 1. Medical clearance for [facility] 2. Suicide watch at [facility] Referrals: Patient,NotPresent [Unknown] - As per Instructions
[2018-03-18 16:27] LABS: PLATELET COUNT 285 10^3/uL (150-400)
[2018-03-18] MEDS ORDERED: IOPAMIDOL (ISOVUE 370) 100 ML BTL IV ONE (16:54)
[2018-03-18 18:14] VITALS: BP 114/88
== END 2018-03-18 18:16 | disposition home or self-care (01) ==
LOC: EDUNIT#
DX: F25.0 Schizoaffective disorder, bipolar type (principal); F43.10 Post-traumatic stress disorder, unspecified; R45.851 Suicidal ideations
CPT/HCPCS: Q9967

== ENCOUNTER 2018-05-20 14:28 | Emergency (ER) | payer SELFPAY ==
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
[2018-05-20 15:26] VITALS: BP 126/77
[2018-05-20] MEDS ORDERED: IBUPROFEN 600 MG TAB PO ONE (15:37)
== END 2018-05-20 15:26 | disposition home or self-care (01) ==
DX: S80.212A Abrasion, left knee, initial encounter (principal); V19.9XXA Pedal cyclist (driver) (passenger) injured in unspecified traffic accident, initial encounter; Y92.9 Unspecified place or not applicable; Y99.9 Unspecified external cause status; Y93.9 Activity, unspecified